=== PATIENT | female | born 1990 | race Caucasian/White ===

== ENCOUNTER 2018-03-04 17:58 | Emergency (ER) | payer OTHER ==
[2018-03-04 18:08] VITALS: BP 90/52; PULSE 75; TEMP 98; BMI 21.6
--- NOTE | 2018-03-04 18:51 | PDOC ---
History of Present Illness - General Chief Complaint: Rectal Bleed Stated Complaint: PAIN Time Seen by Provider: 03/04/18 18:38 - History of Present Illness Initial Comments: 03/04/18 18:49 27-year-old female without comorbidities presents for evaluation of hemorrhoid exacerbation 4 days. Past History - Past Medical History Allergies/Adverse Reactions: Allergies Allergy/AdvReac Type Severity Reaction Status Date / Time No Known Allergies Allergy Verified 03/04/18 18:03 Home Medications: Ambulatory Orders Docusate Sodium [Colace] 100 mg PO BID #50 capsule 03/04/18 Hydrocortisone Acetate [Anusol Hc Suppository -] 25 mg RC BID #28 supp.rect Anemia: No Asthma: No Cancer: No Cardiac Disorders: No COPD: No Diabetes: No HTN: No Seizures: No Thyroid Disease: No - Surgical History Abdominal Surgery: No Appendectomy: Yes Cardiac Surgery: No - Reproductive History (#): 2 Para: 1 Therapeutic (s) & number: No - Immunization History Immunization Up to Date: Yes - Suicide/Smoking/Psychosocial Hx Smoking Status: No Smoking History: Never smoked Have you smoked in the past 12 months: No Number of Cigarettes Smoked Daily: 0 Hx Alcohol Use: No Drug/Substance Use Hx: No Substance Use Type: None Hx Substance Use Treatment: No Review of Systems - Review of Systems ABD/GI: Yes: See HPI, Rectal Bleeding *Physical Exam - Vital Signs Last Vital Signs Temp Pulse Resp BP Pulse Ox 98.0 F 75 18 90/52 L 98 03/04/18 18:03 03/04/18 18:03 03/04/18 18:03 03/04/18 18:03 03/04/18 18:03 - Physical Exam Comments: 03/04/18 18:50 HEAD: NC/AT EYES: Conjuntiva clear ABDOMEN: Soft NT ND; there is a large thrombosed hemorrhoid at the 6 o'clock position digital rectal exam was not done patient unable to tolerate MS: Full ROM in all joints without edema NEUROLOGIC: No gross sensory or motor deficits, NVID SKIN: Normal color and temperature no lesions or rashes Moderate Sedation - Procedure Monitoring Vital Signs: Procedure Monitoring Vital Signs Temperature 98.0 F 03/04/18 18:03 Pulse Rate 75 03/04/18 18:03 Respiratory Rate 18 03/04/18 18:03 Blood Pressure 90/52 L 01/15/19 18:03 O2 Sat by Pulse Oximetry (%) 98 03/04/18 18:03 *DC/Admit/Observation/Transfer Diagnosis at time of Disposition: Bleeding hemorrhoid - Discharge Dispostion Disposition: HOME Condition at time of disposition: Stable Decision to Admit order: No - Prescriptions Prescriptions: Docusate Sodium [Colace] 100 mg PO BID #50 capsule Hydrocortisone Acetate [Anusol Hc Suppository -] 25 mg RC BID #28 supp.rect - Referrals Referrals: Timbo Link DO [Staff Physician] - - Patient Instructions Printed Discharge Instructions: DI for Hemorrhoids Additional Instructions: Return to the emergency room should symptoms worsen or go unresolved please take the stool softener as directed and use the suppositories as directed which will help her pain decrease swelling follow-up with gastroenterology in one to 2 days for further evaluation and treatment options. - Post Discharge Activity
== END 2018-03-04 18:59 | disposition home or self-care (01) ==
LOC: JERFT 17:58
DX: K64.5 Perianal venous thrombosis (principal)
CPT/HCPCS: 99281-25

== ENCOUNTER 2018-03-07 17:15 | Emergency (ER) | payer OTHER ==
[2018-03-07 17:33] VITALS: BP 98/66; PULSE 60; TEMP 98.4; BMI 23.0
--- NOTE | 2018-03-07 17:51 | PDOC ---
History of Present Illness - General Chief Complaint: Hemorrhoids Stated Complaint: ABDOMINAL PAIN Time Seen by Provider: 03/07/18 17:50 History Source: Patient Exam Limitations: No Limitations - History of Present Illness Initial Comments: 03/07/18 18:20 patient came eevaluation of persistent rectal pain . Was seen h days ago and treated and encouraged ow up with GI forhemorrhoid evaluation. Patient states was Unable to get an appointment with GI doctor/consult for 2 weeks and had remittent bleeding from the hemorrhoid with pain. Denies fever, has been using Colace, but concerned about worsening of symptoms Timing/Duration: unsure, 1 week Severity: moderate Associated Symptoms: reports: denies symptoms Past History - Travel Traveled outside of the country in the last 30 days: No Close contact w/someone who was outside of country & ill: No - Past Medical History Allergies/Adverse Reactions: Allergies Allergy/AdvReac Type Severity Reaction Status Date / Time No Known Allergies Allergy Verified 03/07/18 17:31 Home Medications: Ambulatory Orders Docusate Sodium [Colace] 100 mg PO ASDIR 03/07/18 Hydrocortisone 2.5% Topical Cr [Anusol 2.5% Hc Cream -] 1 applic RC DAILY Hydrocortisone Acetate [Anusol Hc Suppository -] 25 mg RC DAILY #14 supp.rect Anemia: No Asthma: No Cancer: No Cardiac Disorders: No COPD: No Diabetes: No HTN: No Seizures: No Thyroid Disease: No - Surgical History Abdominal Surgery: No Appendectomy: Yes Cardiac Surgery: No - Reproductive History (#): 2 Para: 1 Therapeutic (s) & number: No - Immunization History Immunization Up to Date: Yes - Suicide/Smoking/Psychosocial Hx Smoking Status: No Smoking History: Unknown if ever smoked Have you smoked in the past 12 months: No Number of Cigarettes Smoked Daily: 0 Hx Alcohol Use: No Drug/Substance Use Hx: No Substance Use Type: None Hx Substance Use Treatment: No Review of Systems - Review of Systems Able to Perform ROS?: No Is the patient limited Romansh proficient: No Constitutional: Yes: Symptoms Reported, See HPI, Malaise. No: Fever Musculoskeletal: Yes: Symptoms Reported Integumentary: Yes: Symptoms Reported All Other Systems: Reviewed and Negative *Physical Exam - Vital Signs Last Vital Signs Temp Pulse Resp BP Pulse Ox 98.4 F 60 18 98/66 98 03/07/18 17:31 03/07/18 17:31 03/07/18 17:31 03/07/18 17:31 03/07/18 17:31 - Physical Exam General Appearance: Yes: Nourished, Appropriately Dressed, Apparent Distress, Mild Distress HEENT: positive: IRLANDA, TMs Normal Gastrointestinal/Abdominal: positive: Soft. negative: Tender Rectal Exam: positive: normal rectal tone, hemorrhoids (2 large tender dusky hemorrhoids., ). negative: normal exam Extremity: positive: Normal Capillary Refill, Normal Range of Motion Integumentary: positive: Normal Color, Warm Neurologic: positive: newspaper copy editor II-XII NML intact, Fully Oriented, Alert, Normal Mood/ Affect, Normal Response, Motor Strength 5/5 Moderate Sedation - Procedure Monitoring Vital Signs: Procedure Monitoring Vital Signs Temperature 98.4 F 03/07/18 17:31 Pulse Rate 60 03/07/18 17:31 Respiratory Rate 18 03/07/18 17:31 Blood Pressure 98/66 03/07/18 17:31 O2 Sat by Pulse Oximetry (%) 98 03/07/18 17:31 Procedures - Incision and Drainage I&D Site: Bilateral: Other (thrombosed hemorrhoid, anesthetized and extracte 2 different significant blood clot. ) Betadine cleansed: Yes Anesthesia: 1% Lidocaine Blade Size: 11 Complications: none *DC/Admit/Observation/Transfer Diagnosis at time of Disposition: Thrombosed external hemorrhoid - Discharge Dispostion Disposition: HOME Condition at time of disposition: Stable Decision to Admit order: No - Referrals - Patient Instructions Printed Discharge Instructions: DI for Hemorrhoids Additional Instructions: Rest, avoid strenuous activity or heavy lifting until symptoms resolve Drink plenty of water, fluids, keep diet soft to help assist with softer bowel movements Use stool softener until hemorrhoids resolve Hot tub baths, hot soaks to rectal wall to help resolve some swelling, burning and itching May use Tucks or special preparation wipes to bottom to help resolve swelling and itching May use [id number] preparations, like Preparation H to help reduce swelling and assist with itching and discomfort Anusol suppositories 1 suppository every 8-12 hours as needed Follow-up with private physician or colorectal surgeon for reevaluation as needed Return to emergency department for worsened pain, firmness to hemorrhoid, worsened bleeding. - Post Discharge Activity Forms/Work/School Notes: Back to Work
== END 2018-03-07 18:33 | disposition home or self-care (01) ==
LOC: JERFT 17:15
PROC: 069Y0ZZ Drainage of Lower Vein, Open Approach (ICD-10-PCS; principal; 2018-03-07)
DX: K64.5 Perianal venous thrombosis (principal)
CPT/HCPCS: 99281-25

== ENCOUNTER 2018-04-03 22:48 | Emergency (ER) | payer OTHER ==
[2018-04-03 23:27] VITALS: BMI 29.2
--- NOTE | 2018-04-03 23:35 | PDOC ---
History of Present Illness - General Chief Complaint: Pain Stated Complaint: PAIN Time Seen by Provider: 04/03/18 23:17 History Source: Patient - History of Present Illness Initial Comments: 04/03/18 23:35 27 year old right breast tenderness and pain x1 week with increased itchiness. patient currently not breast feeding or . patient reports that she had similar issues in the past and was told she has a noncancerous mass in right breast. denies fever/ chills. Past History - Past Medical History Allergies/Adverse Reactions: Allergies Allergy/AdvReac Type Severity Reaction Status Date / Time No Known Allergies Allergy Verified 04/03/18 23:25 Home Medications: Ambulatory Orders Docusate Sodium [Colace] 100 mg PO ASDIR 03/07/18 Hydrocortisone 2.5% Topical Cr [Anusol 2.5% Hc Cream -] 1 applic RC DAILY Hydrocortisone Acetate [Anusol Hc Suppository -] 25 mg RC DAILY #14 supp.rect Cephalexin Monohydrate [Keflex -] 500 mg PO Q6H #40 capsule 04/04/18 Anemia: No Asthma: No Cancer: No Cardiac Disorders: No COPD: No Diabetes: No HTN: No Seizures: No Thyroid Disease: No - Surgical History Abdominal Surgery: No Appendectomy: Yes Cardiac Surgery: No - Reproductive History (#): 2 Para: 1 Therapeutic (s) & number: No - Immunization History Immunization Up to Date: Yes - Suicide/Smoking/Psychosocial Hx Smoking Status: No Smoking History: Never smoked Have you smoked in the past 12 months: No Number of Cigarettes Smoked Daily: 0 Information on smoking cessation initiated: No Hx Alcohol Use: No Drug/Substance Use Hx: No Substance Use Type: None Hx Substance Use Treatment: No Review of Systems - Review of Systems Able to Perform ROS?: Yes Is the patient limited Spanish proficient: No HEENTM: Yes: Other (breast pain and swelling. ) *Physical Exam - Vital Signs Last Vital Signs Temp Pulse Resp BP Pulse Ox 98.1 F 58 L 20 97/52 L 100 04/03/18 23:25 04/03/18 23:25 04/03/18 23:25 04/03/18 23:25 04/03/18 23:25 - Physical Exam General Appearance: Yes: Appropriately Dressed Respiratory/Chest: positive: Lungs Clear, Normal Breath Sounds, Other (right breast nipple inversion erythema to right breast, + fluctuant mass. no nipple drainge, warm to touch. ). negative: Accessory Muscle Use Cardiovascular: positive: Regular Rhythm, Regular Rate Gastrointestinal/Abdominal: positive: Normal Bowel Sounds, Soft. negative: Tender Extremity: positive: Normal Capillary Refill, Normal Inspection, Normal Range of Motion Integumentary: positive: Normal Color, Dry, Warm Neurologic: positive: Fully Oriented, Alert Moderate Sedation - Procedure Monitoring Vital Signs: Procedure Monitoring Vital Signs Temperature 98.1 F 04/03/18 23:25 Pulse Rate 58 L 04/03/18 23:25 Respiratory Rate 20 04/03/18 23:25 Blood Pressure 97/52 L 04/03/18 23:25 O2 Sat by Pulse Oximetry (%) 100 04/03/18 23:25 Medical Decision Making - Medical Decision Making breast abscess P: US antibiotics warm compress 04/04/18 01:04 Breast US: Complex fluid collection with peripheral vascularity deep to the nipple possibly reflecting abscess. Correlation with history and exam and follow-up is recommended 04/04/18 01:[address] mccray, case reviewed . recommends in the office tomorrow for evaluation with Dr. Cordero. strict return precautions reviewed with patient. *DC/Admit/Observation/Transfer Diagnosis at time of Disposition: Breast abscess of female - Discharge Dispostion Disposition: HOME - Prescriptions Prescriptions: Cephalexin Monohydrate [Keflex -] 500 mg PO Q6H #40 capsule - Referrals Referrals: Kavon Mccray MD [Staff Physician] - Call tomorrow Sapphire Patton MD [Staff Physician] - 24 hours (need to be seen tomorrow sent from ER. we spoke to Dr. mccray) - Patient Instructions Printed Discharge Instructions: DI for Breast Mass -- Uncertain Cause Additional Instructions: apply warm compress to the area. continue cephalexin as prescribed follow up with breast surgeon tomorrow [address] [place] [address] Office: [phone] or [phone] return to the ER if you develop fever/ chills, increased redness with streaking. - Post Discharge Activity Forms/Work/School Notes: Back to Work
--- NOTE | 2018-04-03 23:42 | PDOC ---
*Physical Exam - Vital Signs Last Vital Signs Temp Pulse Resp BP Pulse Ox 98.1 F 58 L 20 97/52 L 100 04/03/18 23:25 04/03/18 23:25 04/03/18 23:25 04/03/18 23:25 04/03/18 23:25 Medical Decision Making - Medical Decision Making 04/03/18 23:42 27 yo F h/o known benign breast mass Pt now had swelling, itching Pt seen by Midlevel Provider under my direct supervision Pt interviewed and examined Ancillary studies reviewed I agree with plan as outlined by Midlevel Provider Case reviewed with Dr Sumner Will discharge to home Will follow up with them in the office tomorrow Will give Keflex *DC/Admit/Observation/Transfer Diagnosis at time of Disposition: Breast abscess of female - Discharge Dispostion Disposition: HOME - Prescriptions Prescriptions: Cephalexin Monohydrate [Keflex -] 500 mg PO Q6H #40 capsule - Referrals Referrals: Kavon Mccray MD [Staff Physician] - Call tomorrow Sapphire Patton MD [Staff Physician] - (need to seen . sent from ER. we spoke to Dr. mccray) - Patient Instructions Printed Discharge Instructions: DI for Breast Mass -- Uncertain Cause Additional Instructions: apply warm compress to the area. continue cephalexin as prescribed follow up with breast surgeon tomorrow [address] [place] [place] [address] Office: [phone] or [phone] return to the ER if you develop fever/ chills, increased redness with streaking. - Post Discharge Activity Forms/Work/School Notes: Back to Work
[2018-04-04] MEDS ORDERED: CEPHALEXIN MONOHYDRATE 500 MG CAPSULE (UD) PO ONE (01:34)
[2018-04-04] MEDS ORDERED: CEPHALEXIN MONOHYDRATE 500 MG CAPSULE (UD) ONE (01:54)
[2018-04-04 02:04] VITALS: BP 122/77; PULSE 79; TEMP 98.3
== END 2018-04-04 02:06 | disposition home or self-care (01) ==
LOC: JER 22:48
DX: N61.1 Abscess of the breast and nipple (principal)
CPT/HCPCS: 76641-TC-RT; 99281-25

== ENCOUNTER 2020-07-29 18:46 | Emergency (ER) | payer OTHER ==
[2020-07-29 19:00] VITALS: BP 110/59; PULSE 60; TEMP 98.8; BMI 23.0
[2020-07-29] MEDS ORDERED: ACETAMINOPHEN 500 MG TABLET (FP) PO ONE (19:31)
[2020-07-29] MEDS ORDERED: LIDOCAINE 5% TOPICAL PATCH TP ONE (19:31)
[2020-07-29] MEDS ORDERED: ACETAMINOPHEN 325 MG TABLET (FP) ONE (20:22)
[2020-07-29 20:30] LABS: BASO % 0.8 % (0-2.0); EOS % 1.9 % (0-4.5); HEMATOCRIT 34.2 % (32.4-45.2); HEMOGLOBIN 11.6 GM/dL (10.7-15.3); LYMPH % 16.2 % (8-40); MCH 32.3 pg (25.7-33.7); MCHC 33.8 g/dl (32.0-36.0); MEAN CELL VOLUME 95.5 fl (80-96); MEAN PLT VOLUME 9.4 fl (7.5-11.1); NEUT % 75.1 % (42.8-82.8); PLATELET COUNT 180 K/MM3 (134-434); RBC 3.58 M/mm3 (3.60-5.2); RDW 13.7 % (11.6-15.6); WHITE BLOOD COUNT 9.9 K/mm3 (4.0-10.0)
[2020-07-29 20:49] LABS: CHLORIDE 105 mmol/L (98-107); SODIUM 139 mmol/L (136-145)
[2020-07-29 20:52] LABS: ALBUMIN 3.7 g/dl (3.4-5.0); ANION GAP 6 MMOL/L (8-16); BLOOD UREA NITROGEN 13.2 mg/dL (7-18); CALCIUM 8.9 mg/dL (8.5-10.1); CO2 28 mmol/L (21-32); GLUCOSE,RANDOM 76 mg/dL (74-106)
[2020-07-29 20:55] LABS: CREATININE 0.6 mg/dL (0.55-1.3); SGOT/AST 12 U/L (15-37); SGPT/ALT 16 U/L (13-61)
[2020-07-29 20:57] LABS: BILIRUBIN,TOTAL 0.6 mg/dL (0.2-1)
[2020-07-29 20:58] LABS: ALK PHOS 50 U/L (45-117)
[2020-07-30] MEDS ORDERED: LIDOCAINE PATCH REMOVAL MC SCH (07:30)
== END 2020-07-29 21:28 | disposition home or self-care (01) ==
LOC: JER 18:46
DX: M94.0 Chondrocostal junction syndrome [Tietze] (principal)
CPT/HCPCS: 36415; 71046-TC-FY; 80053; 82550; 84484; 84703; 85025; 93005; 93010; 99284-25

== ENCOUNTER 2024-01-29 09:42 | Emergency (ER) | payer SELFPAY ==
[2024-01-29 09:58] VITALS: BP 93/57; PULSE 59; RESP 18; TEMP 98.7; BMI 21.6
[2024-01-29 11:27] LABS: EPI CELLS 10 /uL (0-25.1); HYALINE CASTS 2 /uL (0-3.1); PH,URINE 8.5 (5.0-8.0); URINE APPEARANCE CLOUDY; URINE BACTERIA >9,000 /uL (0-1359); URINE BILIRUBIN NEGATIVE (NEGATIVE); URINE COLOR RED; URINE GLUCOSE (UA) NEGATIVE (NEGATIVE); URINE KETONE NEGATIVE (NEGATIVE); URINE LEUK ESTERASE 3+ (NEGATIVE); URINE NITRITE NEGATIVE (NEGATIVE); URINE PROTEIN 1+ (NEGATIVE); URINE RBC 2739 /uL (0-23.9); URINE WBC 2103 /uL (0-25.8)
[2024-01-29 12:16] LABS: BASO % 0.7 % (0-2.0); EOS % 0.4 % (0-4.5); HEMATOCRIT 38.1 % (32.4-45.2); HEMOGLOBIN 12.6 GM/dL (10.7-15.3); LYMPH % 12.8 % (8-40); MCH 32.2 pg (25.7-33.7); MCHC 33.1 g/dl (32.0-36.0); MEAN CELL VOLUME 97.3 fl (80-96); MEAN PLT VOLUME 8.4 fl (7.5-11.1); MONO % 5.2 % (3.8-10.2); NEUT % 80.9 % (42.8-82.8); PLATELET COUNT 247 10^3/uL (134-434); RBC 3.91 M/mm3 (3.60-5.2); RDW 14.4 % (11.6-15.6); WHITE BLOOD COUNT 9.8 K/mm3 (4.0-10.0)
[2024-01-29 12:31] LABS: POTASSIUM 4.1 mmol/L (3.5-5.1)
[2024-01-29 12:33] LABS: CALCIUM 9.5 mg/dL (8.5-10.1)
[2024-01-29 12:34] LABS: ALBUMIN 3.8 g/dl (3.4-5.0); BLOOD UREA NITROGEN 12.6 mg/dL (7-18)
[2024-01-29 12:37] LABS: CREATININE 0.7 mg/dL (0.55-1.3)
[2024-01-29 12:40] LABS: BILIRUBIN,TOTAL 0.8 mg/dL (0.2-1); TOT PROT 7.6 g/dl (6.4-8.2)
[2024-01-29] MEDS: CEFPODOXIME PROXETIL 100 MG TABLET PO ONE (13:31)
[2024-01-29 13:59] LABS: HIV INTERPRETATION NEGATIVE (NEGATIVE)
== END 2024-01-29 13:31 | disposition home or self-care (01) ==
LOC: JER 09:42
DX: N30.90 Cystitis, unspecified without hematuria (principal); R35.0 Frequency of micturition; R39.15 Urgency of urination; R10.30 Lower abdominal pain, unspecified
CPT/HCPCS: 36415; 76775-TC; 80053; 81003; 84703; 85025; 86803; 87086; 87186; 87389; 99284-25

== ENCOUNTER 2024-08-21 02:42 | Emergency (ER) | payer OTHER ==
[2024-08-21 02:50] VITALS: BP 106/55; PULSE 63; RESP 18; TEMP 98.1; BMI 26.6
[2024-08-21] MEDS ORDERED: MAG HYDROX/AL HYDROX/SIMETH 30 ML UNIT-DOSE CUP ONE (03:42)
[2024-08-21] MEDS: MAG HYDROX/AL HYDROX/SIMETH 30 ML UNIT-DOSE CUP PO ONE (03:54)
[2024-08-21 03:57] LABS: ABSOLUTE IMMATURE GRANULOCYTES 0.02 x10^3/uL (0.0-0.031); BASOPHILS # 0.03 x10^3/uL (0.01-0.08); EOSINOPHIL % 1.6 % (0.7-5.8); EOSINOPHILS # 0.15 x10^3/uL (0.04-0.36); MCHC 33.2 g/dl (32.2-35.5); MEAN CELL VOLUME 96.0 fl (79.4-94.8); MEAN PLT VOLUME 10.4 fl (9.4-12.3); MONOCYTE # 0.95 x10^3/uL (0.24-0.86); MONOCYTE % 10.4 % (4.7-12.5); RDW 13.0 % (12.1-16.8)
[2024-08-21 04:12] LABS: CO2 26.0 mmol/L (21-32)
[2024-08-21 04:13] LABS: GLUCOSE,RANDOM 90.0 mg/dL (74-106)
[2024-08-21 04:15] LABS: CREATININE 0.7 mg/dL (0.55-1.3); SGOT/AST 15.0 U/L (15-37); SGPT/ALT 16.0 U/L (13-61)
[2024-08-21 04:16] LABS: TOT PROT 7.5 g/dl (6.4-8.2)
[2024-08-21 04:18] LABS: ALK PHOS 59.0 U/L (45-117)
[2024-08-21 05:06] LABS: HIV INTERPRETATION NEGATIVE (NEGATIVE)
[2024-08-21 05:22] LABS: EPI CELLS 18 /uL (0-25.1); HYALINE CASTS 2 /uL (0-3.1); URINE APPEARANCE CLEAR; URINE BACTERIA 91 /uL (0-1359); URINE BILIRUBIN NEGATIVE (NEGATIVE); URINE COLOR YELLOW; URINE GLUCOSE (UA) NEGATIVE (NEGATIVE); URINE KETONE 1+ (NEGATIVE); URINE LEUK ESTERASE NEGATIVE (NEGATIVE); URINE NITRITE NEGATIVE (NEGATIVE); URINE PROTEIN TRACE (NEGATIVE); URINE RBC 211 /uL (0-23.9); URINE UROBILINOGEN 1.0 mg/dL (0.2-1.0); URINE WBC 9 /uL (0-25.8)
[2024-08-21 06:20] LABS: HCV DIAGNOSTIC IN-HOUSE W/RFLX NON-REACTIVE (NONREACTIVE)
== END 2024-08-21 06:37 | disposition home or self-care (01) ==
LOC: JER 02:42
DX: N83.202 Unspecified ovarian cyst, left side (principal); R10.31 Right lower quadrant pain; R10.32 Left lower quadrant pain; R63.0 Anorexia
CPT/HCPCS: 36415; 74177-TC; 80053; 81003; 83690; 84703; 85025; 86803; 87086; 87389; 93005; 93010; 99285-25; Q9967